=== PATIENT | male | born 2005 | race African-American/Black ===

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

== ENCOUNTER 2025-02-17 00:10 | Emergency (ER) | payer BC ==
[2025-02-17] MEDS ORDERED: Ondansetron PF 4 MG/2 ML Vial ONE (00:38)
[2025-02-17 01:03] LABS: #Basophils 0.0 thou/uL (0.0-0.2); #Eosinophils 0.1 thou/uL (0.0-0.7); #Lymphocytes 3.5 thou/uL (1.20-3.40); #Monocytes 0.5 thou/uL (0.11-0.59); #Neutrophils 7.5 thou/uL (1.40-6.50); %Basophils 0.2 % (0.0-1.0); %Eosinophils 0.9 % (0.0-10.0); %Lymphocytes 29.8 % (28.0-48.0); %Monocytes 4.2 % (0.0-4.0); %Neutrophils 64.9 % (31.0-61.0); Hematocrit 44.1 % (42.0-52.0); Hemoglobin 15.3 g/dL (14.0-18.0); Mean Corpuscular Hemoglobin 29.3 pg (25.0-35.0); Mean Corpuscular Volume 84.5 fl (78.0-98.0); Platelet Count 225 10x3/uL (130-400); Red Blood Cell (RBC) Count 5.22 mill/uL (4.00-5.20); White Blood Cell (WBC) Count 11.6 10x3/uL (4.8-10.8)
[2025-02-17 01:12] LABS: ALT (SGPT) 13 U/L (Less than 45); AST (SGOT) 24 U/L (11-34); Albumin 5.1 g/dL (3.1-4.5); Alkaline Phosphatase 77 U/L (50-130); Anion Gap 21 mmol/L (10-20); BUN (Urea Nitrogen) 10 mg/dL (8.4-21.0); Bilirubin, Total 1.3 mg/dL (0.3-1.2); Calc. Creatinine Clearance 0 mL/min (70-130); Calcium 10.0 mg/dL (7.8-10.44); Carbon Dioxide 20 mmol/L (22-29); Chloride 101 mmol/L (98-107); Globulin 2.9 g/dL (2.4-3.5); Glucose 140 mg/dL (70-105); Potassium 3.3 mmol/L (3.5-5.1); Sodium 139 mmol/L (136-145)
== END 2025-02-17 02:50 | disposition home or self-care (01) ==
LOC: NAV ERS 00:10
DX: F12.988 Cannabis use, unspecified with other cannabis-induced disorder (principal); R11.2 Nausea with vomiting, unspecified; F17.290 Nicotine dependence, other tobacco product, uncomplicated
CPT/HCPCS: 80053; 85025; 96361; 96374; 96375; J1630; J2405; J7030

== ENCOUNTER 2025-02-17 19:41 | Emergency (ER) | payer BC ==
[2025-02-18] MEDS ORDERED: Ondansetron PF 4 MG/2 ML Vial ONE (05:42)
[2025-02-18] MEDS ORDERED: Pantoprazole 40 MG VIAL ONE (05:42)
== END 2025-02-17 20:08 ==
LOC: NAV ERS 19:41
DX: Z53.21 Procedure and treatment not carried out due to patient leaving prior to being seen by health care provider (principal)

== ENCOUNTER 2025-02-18 05:16 | Emergency (ER) | payer BC ==
[2025-02-18 05:57] LABS: #Basophils 0.0 thou/uL (0.0-0.2); #Eosinophils 0.0 thou/uL (0.0-0.7); #Lymphocytes 2.8 thou/uL (1.20-3.40); #Monocytes 0.6 thou/uL (0.11-0.59); #Neutrophils 7.7 thou/uL (1.40-6.50); %Basophils 0.2 % (0.0-1.0); %Eosinophils 0.1 % (0.0-10.0); %Lymphocytes 25.0 % (28.0-48.0); %Monocytes 5.5 % (0.0-4.0); %Neutrophils 69.2 % (31.0-61.0); Hematocrit 45.3 % (42.0-52.0); Hemoglobin 15.8 g/dL (14.0-18.0); Manual Diff?? NO; Mean Corpuscular Hemoglobin 29.4 pg (25.0-35.0); Mean Corpuscular Volume 84.4 fl (78.0-98.0); Platelet Count 254 10x3/uL (130-400); Red Blood Cell (RBC) Count 5.37 mill/uL (4.00-5.20); White Blood Cell (WBC) Count 11.1 10x3/uL (4.8-10.8)
[2025-02-18 06:10] LABS: ALT (SGPT) 15 U/L (Less than 45); AST (SGOT) 26 U/L (11-34); Albumin 5.2 g/dL (3.1-4.5); Alkaline Phosphatase 73 U/L (50-130); Anion Gap 19 mmol/L (10-20); BUN (Urea Nitrogen) 10 mg/dL (8.4-21.0); Bilirubin, Total 1.7 mg/dL (0.3-1.2); Calc. Creatinine Clearance 0 mL/min (70-130); Calcium 10.0 mg/dL (7.8-10.44); Carbon Dioxide 23 mmol/L (22-29); Chloride 98 mmol/L (98-107); Globulin 3.1 g/dL (2.4-3.5); Glucose 102 mg/dL (70-105); Lipase 76 U/L (8-78); Potassium 3.1 mmol/L (3.5-5.1); Sodium 137 mmol/L (136-145)
[2025-02-18] MEDS ORDERED: Ondansetron PF 4 MG/2 ML Vial ONE (07:41)
[2025-02-18] MEDS ORDERED: NS 0.9% w/ 20 MEQ KCL 1,000 ML ONE (07:42)
[2025-02-18 08:34] LABS: Cocaine Metabolite Screen Negative (Negative); THC/Cannabinoid Screen PRELIM POSITIVE (Negative); Tricyclic Screen Negative (Negative)
[2025-02-18 08:41] LABS: Glucose, Urine (Dipstick) Negative (Negative); Leukocyte Negative (Negative); Protein, Urine (Dipstick) Negative (Neg-Trace); Specific Gravity, Urine 1.020 (1.005-1.030)
== END 2025-02-18 09:01 | disposition home or self-care (01) ==
LOC: NAV ERS 05:16
DX: R11.2 Nausea with vomiting, unspecified (principal); E87.6 Hypokalemia; F17.290 Nicotine dependence, other tobacco product, uncomplicated
CPT/HCPCS: 80053; 80306; 81001; 83690; 85025; 96361; 96374; 96375; 96376; J3480; J7120

== ENCOUNTER 2025-02-19 13:35 | Emergency (ER) | payer BC ==
[2025-02-19] MEDS ORDERED: Mag-Al Plus 1200/1200/120 MG (30 mL) UDCUP ONE ×2 (13:51→13:58)
[2025-02-19] MEDS ORDERED: Lidocaine Viscous Sol 2% 15 ml UD Cup ONE ×2 (13:51→13:58)
[2025-02-19] MEDS ORDERED: Ondansetron PF 4 MG/2 ML Vial ONE ×2 (14:02→14:16)
== END 2025-02-19 14:17 | disposition home or self-care (01) ==
LOC: NAV ERS 13:35
DX: R11.2 Nausea with vomiting, unspecified (principal); F17.290 Nicotine dependence, other tobacco product, uncomplicated
CPT/HCPCS: 96372; 99283

== ENCOUNTER 2025-02-19 20:56 | Emergency (ER) | payer BC | END 2025-02-19 21:27 | disposition home or self-care (01) | LOC: NAV ERS 20:56 | DX: R20.8 Other disturbances of skin sensation (principal); T49.8X5A Adverse effect of other topical agents, initial encounter; F17.290 Nicotine dependence, other tobacco product, uncomplicated; R11.2 Nausea with vomiting, unspecified | CPT/HCPCS: 96372; 99283; 99284 ==

== ENCOUNTER 2025-02-23 21:14 | Emergency (ER) | payer BC ==
[2025-02-23] MEDS ORDERED: diphenhydrAMINE 50 MG/ML VIAL ONE (21:26)
[2025-02-23 21:42] LABS: #Basophils 0.1 thou/uL (0.0-0.2); #Eosinophils 0.0 thou/uL (0.0-0.7); #Lymphocytes 1.6 thou/uL (1.20-3.40); #Monocytes 0.8 thou/uL (0.11-0.59); #Neutrophils 11.5 thou/uL (1.40-6.50); %Basophils 0.5 % (0.0-1.0); %Eosinophils 0.2 % (0.0-10.0); %Lymphocytes 11.2 % (28.0-48.0); %Monocytes 5.4 % (0.0-4.0); %Neutrophils 82.6 % (31.0-61.0); Hematocrit 45.9 % (42.0-52.0); Hemoglobin 16.7 g/dL (14.0-18.0); Mean Corpuscular Hemoglobin 29.5 pg (25.0-35.0); Mean Corpuscular Volume 81.0 fl (78.0-98.0); Platelet Count 269 10x3/uL (130-400); Red Blood Cell (RBC) Count 5.67 mill/uL (4.00-5.20); White Blood Cell (WBC) Count 13.9 10x3/uL (4.8-10.8)
[2025-02-23 21:55] LABS: ALT (SGPT) 10 U/L (Less than 45); AST (SGOT) 21 U/L (11-34); Albumin 5.2 g/dL (3.1-4.5); Alkaline Phosphatase 79 U/L (50-130); Anion Gap 22 mmol/L (10-20); BUN (Urea Nitrogen) 11 mg/dL (8.4-21.0); Bilirubin, Total 1.3 mg/dL (0.3-1.2); Calc. Creatinine Clearance 0 mL/min (70-130); Calcium 10.0 mg/dL (7.8-10.44); Carbon Dioxide 22 mmol/L (22-29); Chloride 91 mmol/L (98-107); Globulin 3.2 g/dL (2.4-3.5); Glucose 121 mg/dL (70-105); Lipase 41 U/L (8-78); Potassium 3.3 mmol/L (3.5-5.1); Sodium 132 mmol/L (136-145)
== END 2025-02-23 22:16 | disposition home or self-care (01) ==
LOC: NAV ERS 21:14
DX: R11.10 Vomiting, unspecified (principal); F17.290 Nicotine dependence, other tobacco product, uncomplicated
CPT/HCPCS: 80053; 83690; 85025; J1200; J1630

== ENCOUNTER 2025-02-25 13:03 | Emergency (ER) | payer BC | END 2025-02-25 13:45 | disposition left against medical advice (07) | LOC: NAV ERS 13:03 | DX: R11.2 Nausea with vomiting, unspecified (principal); F12.120 Cannabis abuse with intoxication, uncomplicated; F17.290 Nicotine dependence, other tobacco product, uncomplicated | CPT/HCPCS: 96372; 99283; J2550 ==

== ENCOUNTER 2025-02-25 15:41 | Emergency (ER) | payer BC ==
[2025-02-25] MEDS ORDERED: diphenhydrAMINE 50 MG/ML VIAL ONE (16:16)
[2025-02-25 16:25] LABS: #Basophils 0.4 thou/uL (0.0-0.2); #Eosinophils 0.0 thou/uL (0.0-0.7); #Lymphocytes 0.7 thou/uL (1.20-3.40); #Monocytes 0.4 thou/uL (0.11-0.59); #Neutrophils 11.5 thou/uL (1.40-6.50); %Basophils 2.9 % (0.0-1.0); %Eosinophils 0.0 % (0.0-10.0); %Lymphocytes 5.1 % (28.0-48.0); %Monocytes 2.8 % (0.0-4.0); %Neutrophils 89.2 % (31.0-61.0); Hematocrit 41.3 % (42.0-52.0); Hemoglobin 14.8 g/dL (14.0-18.0); Mean Corpuscular Hemoglobin 29.7 pg (25.0-35.0); Mean Corpuscular Volume 82.8 fl (78.0-98.0); Platelet Count 221 10x3/uL (130-400); Red Blood Cell (RBC) Count 4.99 mill/uL (4.00-5.20); White Blood Cell (WBC) Count 12.9 10x3/uL (4.8-10.8)
[2025-02-25 16:36] LABS: ALT (SGPT) 14 U/L (Less than 45); AST (SGOT) 35 U/L (11-34); Albumin 4.8 g/dL (3.1-4.5); Alkaline Phosphatase 71 U/L (50-130); Anion Gap 15 mmol/L (10-20); BUN (Urea Nitrogen) 7 mg/dL (8.4-21.0); Bilirubin, Total 0.6 mg/dL (0.3-1.2); Calc. Creatinine Clearance 0 mL/min (70-130); Calcium 9.2 mg/dL (7.8-10.44); Carbon Dioxide 24 mmol/L (22-29); Chloride 96 mmol/L (98-107); Globulin 2.4 g/dL (2.4-3.5); Glucose 113 mg/dL (70-105); Lipase 30 U/L (8-78); Potassium 3.6 mmol/L (3.5-5.1); Sodium 131 mmol/L (136-145)
== END 2025-02-25 16:57 | disposition home or self-care (01) ==
LOC: NAV ERS 15:41
DX: R11.2 Nausea with vomiting, unspecified (principal); F12.120 Cannabis abuse with intoxication, uncomplicated; F17.290 Nicotine dependence, other tobacco product, uncomplicated
CPT/HCPCS: 80053; 83690; 85025; 96374; 96375; J1200; J1630; J7030

== ENCOUNTER 2025-02-27 19:31 | Emergency (ER) | payer BC | END 2025-02-27 20:34 | disposition home or self-care (01) | LOC: NAV ERS 19:31 | DX: R59.0 Localized enlarged lymph nodes (principal); F17.290 Nicotine dependence, other tobacco product, uncomplicated | CPT/HCPCS: 87081; 87426; 87430; 99283 ==

== ENCOUNTER 2025-03-16 09:17 | Emergency (ER) | payer BC | END 2025-03-16 09:45 | disposition home or self-care (01) | LOC: NAV ERS 09:17 | DX: R11.16 Cannabis hyperemesis syndrome (principal); F17.290 Nicotine dependence, other tobacco product, uncomplicated | CPT/HCPCS: 99283; Q0169 ==

== ENCOUNTER 2025-03-17 23:35 | Emergency (ER) | payer BC | END 2025-03-18 00:15 | disposition home or self-care (01) | LOC: NAV ERS 23:35 | DX: R11.16 Cannabis hyperemesis syndrome (principal); F17.290 Nicotine dependence, other tobacco product, uncomplicated | CPT/HCPCS: 96372; 99283 ==

== ENCOUNTER 2025-03-19 09:40 | Emergency (ER) | payer BC, OTHER ==
[2025-03-19] MEDS ORDERED: Lidocaine Viscous Sol 2% 15 ml UD Cup ONE (10:25)
[2025-03-19] MEDS ORDERED: Mag-Al Plus 1200/1200/120 MG (30 mL) UDCUP ONE (10:25)
[2025-03-19 10:55] LABS: Glucose, Urine (Dipstick) Negative (Negative); Leukocyte Negative (Negative); Protein, Urine (Dipstick) Trace mg/dL (Neg-Trace); Specific Gravity, Urine 1.015 (1.005-1.030)
[2025-03-19 11:04] LABS: Cocaine Metabolite Screen Negative (Negative); THC/Cannabinoid Screen PRELIM POSITIVE (Negative); Tricyclic Screen Negative (Negative)
[2025-03-19 11:14] LABS: CAUTI Indications for Culture Pelvic or flank pain; RBC/HPF 0-3 HPF (0-3); WBC/HPF 0-3 HPF (0-3)
[2025-03-19 11:15] LABS: Bacteria/HPF 2+ HPF (None Seen); Urine Culture Reflex No No
== END 2025-03-19 11:53 ==
LOC: EEVIPCON 09:40 → NAV ERS 09:40
DX: R11.16 Cannabis hyperemesis syndrome (principal); F17.290 Nicotine dependence, other tobacco product, uncomplicated; Z59.71 Insufficient health insurance coverage
CPT/HCPCS: 80306; 81001; 96372; 99284; J2550; Q0162